=== PATIENT | male | born 1940 | race Caucasian/White ===

== ENCOUNTER → 2020-01-10 | Outpatient (CLI) | payer MEDICARE | END | disposition home or self-care (01) | LOC: CVU 13:40 | PROVIDERS: ATTEND Internal Medicine Cardiovascular Disease | DX: I08.0 Rheumatic disorders of both mitral and aortic valves (principal); I11.9 Hypertensive heart disease without heart failure | CPT/HCPCS: 93306; 93356 ==

== ENCOUNTER → 2020-04-01 | Outpatient (CLI) | payer MEDICARE ==
[~2020-04-01] MED LIST: AMLO-211 PO; ASPI81TA45 PO; ATOR40TA78 PO; Bethanechol Chloride PO; CALC-183 PO; CHOL10003 PO; CLOP75TA PO; CYAN-10 PO; Calcium PO; L.AC1CAP6 PO; LISI-167 PO; Magnesium PO; PANT40TA6 PO; Potassium PO
== END | disposition home or self-care (01) ==
LOC: CVU 08:55
PROVIDERS: ATTEND Internal Medicine Cardiovascular Disease
DX: Z01.810 Encounter for preprocedural cardiovascular examination (principal); I65.23 Occlusion and stenosis of bilateral carotid arteries; R06.02 Shortness of breath; I35.8 Other nonrheumatic aortic valve disorders; I25.10 Atherosclerotic heart disease of native coronary artery without angina pectoris; N20.0 Calculus of kidney; K44.9 Diaphragmatic hernia without obstruction or gangrene
CPT/HCPCS: 71250; 74176; 93880

== ENCOUNTER 2020-04-08 06:47 | Inpatient (IN) | payer MEDICARE ==
[~2020-04-08] VITALS: Ht 162.6 cm; Wt 69.3 kg
[2020-04-08 07:24] VITALS: BP 126/70
[2020-04-08] MEDS ORDERED: ONDANSETRON 2MG/ML, 2ML IVPush PRN (07:30)
[2020-04-08 07:55] LABS: BASOPHILS % (AUTO) 1 % (0-1); EOSINOPHILS % (AUTO) 1 % (1-7); LYMPHOCYTES % (AUTO) 14 % (22-44); MEAN CORPUSCULAR HEMOGLOBIN 32.4 pg (27.5-34.5); MEAN PLATELET VOLUME 6.5 fL (7.4-10.4); MONOCYTES % (AUTO) 8 % (2-9); NEUTROPHILS % (AUTO) 76 % (42-75); PLATELET COUNT 327 x10^3/uL (130-400); RED BLOOD COUNT 4.81 x10^6/uL (4.38-5.82); RED CELL DISTRIBUTION WIDTH 13.3 % (9.4-14.8)
[2020-04-08 08:04] LABS: MD NO
[2020-04-08 08:06] LABS: INTERNATIONAL NORMALIZED RATIO 0.97 (0.93-1.1); PROTHROMBIN TIME 10.4 Seconds (9.6-11.5)
[2020-04-08 08:09] LABS: ANION GAP 9 mmol/L (5-15); CALCIUM 9.3 mg/dL (8.5-10.1); CHLORIDE 113 mmol/L (98-107)
[2020-04-08 08:12] LABS: ALANINE AMINOTRANSFERASE 29 U/L (12-78); ALKALINE PHOSPHATASE 93 U/L (45-117); BILIRUBIN,TOTAL 0.9 mg/dL (0.2-1.0); CREATININE 1.41 mg/dL (0.7-1.3); TOTAL PROTEIN 7.2 g/dL (6.4-8.2)
[2020-04-08] MEDS ORDERED: PROPOFOL 50 ML ONE (08:28)
[2020-04-08] MEDS ORDERED: SUCCINYLCHOLINE 20 MG/ML, 10ML ONE (08:52)
[2020-04-08] MEDS ORDERED: CEFAZOLIN 1,000 MG ONE (08:52)
[2020-04-08] MEDS ORDERED: PROTAMINE SULFATE 10 MG/ML, 5ML ONE (08:58)
[2020-04-08] MEDS ORDERED: FENTANYL PF 250 MCG/5ML ONE (09:08)
[2020-04-08] MEDS ORDERED: HEPARIN 1,000 UNITS/ML, 10ML ONE ×2 (09:09)
[2020-04-08] MEDS ORDERED: ROCURONIUM 10MG/ML,5ML ONE (09:09)
[2020-04-08] MEDS ORDERED: ONDANSETRON 2MG/ML, 2ML ONE (09:10)
[2020-04-08] MEDS ORDERED: ACETAMINOPHEN 325 MG TABLET PO PRN (10:00)
[2020-04-08] MEDS ORDERED: hydrALAzine 20 MG/ML, 1ML IVPush PRN (10:00)
[2020-04-08] MEDS ORDERED: LABETALOL 20 MG/4 ML IVPush PRN (10:00)
[2020-04-08 14:16] VITALS: BP 151/68
[2020-04-08 20:00] VITALS: BP 130/73
[2020-04-08] MEDS ORDERED: ATORVASTATIN 40 MG TABLET PO SCH (21:00)
[2020-04-09 02:30] VITALS: BP 126/73
[2020-04-09 05:50] LABS: BASOPHILS % (AUTO) 0 % (0-1); EOSINOPHILS % (AUTO) 0 % (1-7); LYMPHOCYTES % (AUTO) 5 % (22-44); MEAN CORPUSCULAR HEMOGLOBIN 31.6 pg (27.5-34.5); MEAN CORPUSCULAR HGB CONC 34.1 g/dL (33.2-36.2); MEAN PLATELET VOLUME 6.7 fL (7.4-10.4); MONOCYTES % (AUTO) 5 % (2-9); NEUTROPHILS % (AUTO) 89 % (42-75); PLATELET COUNT 218 x10^3/uL (130-400); RED BLOOD COUNT 4.55 x10^6/uL (4.38-5.82); RED CELL DISTRIBUTION WIDTH 13.1 % (9.4-14.8)
[2020-04-09 05:54] LABS: ANION GAP 8 mmol/L (5-15); CALCIUM 8.2 mg/dL (8.5-10.1); CHLORIDE 112 mmol/L (98-107)
[2020-04-09 07:28] LABS: MD SCAN
[2020-04-09 08:00] VITALS: BP 129/67
[2020-04-09] MEDS ORDERED: AMLODIPINE 10 MG TAB PO SCH (09:00)
[2020-04-09] MEDS ORDERED: ASPIRIN 81 MG TABLET EC PO SCH (09:00)
[2020-04-09] MEDS ORDERED: PANTOPRAZOLE 40MG TABLET PO SCH (09:00)
[2020-04-09] MEDS ORDERED: LISINOPRIL 10 MG TABLET PO SCH (09:00)
[2020-04-09] MEDS ORDERED: CLOPIDOGREL 75 MG TABLET PO SCH (09:00)
[2020-04-09] MEDS ORDERED: CHOLECALCIFEROL 1,000 UNIT TABLET PO SCH (09:00)
[2020-04-09 12:55] VITALS: BP 128/70
== END 2020-04-09 14:35 | disposition home or self-care (01) | DRG 267 ==
LOC: ORIP 06:47 → 5SO 11:38 → DCLOUNGE 04-09 14:22
PROVIDERS: ADMIT Internal Medicine Cardiovascular Disease; ATTEND Internal Medicine Cardiovascular Disease
PROC: B24CZZ4 Ultrasonography of Pericardium, Transesophageal (ICD-10-PCS; 2020-04-08)
PROC: 02RF38Z Replacement of Aortic Valve with Zooplastic Tissue, Percutaneous Approach (ICD-10-PCS; principal; 2020-04-08 09:30)
DX: I35.0 Nonrheumatic aortic (valve) stenosis (principal); D72.829 Elevated white blood cell count, unspecified; I13.10 Hypertensive heart and chronic kidney disease without heart failure, with stage 1 through stage 4 chronic kidney disease, or unspecified chronic kidney disease; I25.10 Atherosclerotic heart disease of native coronary artery without angina pectoris; N18.9 Chronic kidney disease, unspecified; Z20.822 Contact with and (suspected) exposure to COVID-19; Z79.899 Other long term (current) drug therapy
CPT/HCPCS: 33361; 36415; 76937; 80048; 80053; 85025; 85347; 85610; 86850; 86900; 86923; 87635; 93005; 93306; 93312; 93321; 93325; 93355; C1760; C1769; C1894; G0378; J0690; J1644; J2405; J2704; J2720; J3010; J0330; Q9967

== ENCOUNTER 2020-05-20 10:27 | Outpatient (CLI) | payer MEDICARE | END 2020-05-20 23:59 | disposition home or self-care (01) | LOC: CFH 10:27 | PROVIDERS: ATTEND Internal Medicine Cardiovascular Disease | DX: Z01.810 Encounter for preprocedural cardiovascular examination (principal); I08.1 Rheumatic disorders of both mitral and tricuspid valves; I65.29 Occlusion and stenosis of unspecified carotid artery; E78.5 Hyperlipidemia, unspecified; I11.9 Hypertensive heart disease without heart failure; Z95.2 Presence of prosthetic heart valve | CPT/HCPCS: 93306 ==